=== PATIENT | female | born 1950 | race Two or more races ===

== ENCOUNTER 2021-03-14 14:53 | Inpatient (IN) | payer MEDICARE, BC ==
[~2021-03-14] VITALS: Ht 162.6 cm; Wt 95.3 kg
--- NOTE | 2021-03-14 15:05 | NUR ---
SALINE LOCK ESTABLISHED, BLOOD DRAWN AND SENT TO LAB
--- NOTE | 2021-03-14 15:05 | NUR ---
TO ER BED 16, BIB RA 39 FROM HOME GENERALIZED WEAKNESS X 1 WEEK, SOB 86 AT ROOM AIR, AAOX3, CHANGED INTO A GOWN, CONNECTED TO MONITOR, SEEN BY
--- NOTE | 2021-03-14 15:10 | NUR ---
URINE COLLECTED AND SENT TO LAB
[2021-03-14] MEDS ORDERED: IV NS 0.9% 1,000 ML BAG IV ONE (15:30)
[2021-03-14] MEDS ORDERED: ANESTHESIA TRAY IN PYXIS 1 EA TRAY MC ONE (15:31)
--- NOTE | 2021-03-14 15:41 | NUR ---
MOVE SHEET SUBMITTED.
[2021-03-14 15:59] LABS: BASOPHILS # (AUTO) 0.1 K/uL (0.0-0.2); BASOPHILS % (AUTO) 0.6 % (0.0-2.0); EOSINOPHILS % (AUTO) 0.1 % (0.0-6.0); HEMATOCRIT 36 % (33-45); HEMOGLOBIN 11.9 g/dL (11.5-14.8); LYMPHOCYTES % (AUTO) 10.5 % (20.0-44.0); MEAN CORPUSCULAR HGB CONC 33 g/dl (31.0-36.0); MEAN CORPUSCULAR VOLUME 89 fL (82-100); MONOCYTES # (AUTO) 0.5 K/uL (0.1-1.30); MONOCYTES % (AUTO) 5.1 % (2.0-12.0); NEUTROPHILS # (AUTO) 8.3 K/uL (1.8-8.9); NEUTROPHILS % (AUTO) 83.7 % (43.0-81.0); PLATELET COUNT (AUTO) 235 K/uL (150-450); RED BLOOD CELL COUNT(AUTO) 4.02 MIL/uL (4.0-5.2); WHITE BLOOD COUNT (AUTO) 9.9 K/uL (4.3-11.0)
--- NOTE | 2021-03-14 16:17 | NUR ---
BRUNO DAUGHTER [phone]
[2021-03-14] MEDS ORDERED: FUROSEMIDE 40 MG/4 ML VIAL ONE (16:20)
[2021-03-14] MEDS ORDERED: NTG 50 MG/D5W250 ML BOTTL 250 ML IV ONE ×2 (16:25→16:30)
[2021-03-14] MEDS ORDERED: ENALAPRILAT INJ (1.25 MG/ML) 1.25 MG/ML VIAL IV ONE (16:26)
[2021-03-14] MEDS ORDERED: ASPIRIN 325 MG TABLET ONE (16:26)
[2021-03-14] MEDS ORDERED: FUROSEMIDE 40 MG/4 ML VIAL IV ONE (16:30)
[2021-03-14] MEDS ORDERED: ENALAPRILAT DIHYD. (2.5MG/2ML) 1.25 MG/ML VIAL IV ONE (16:30)
[2021-03-14] MEDS ORDERED: ASPIRIN 325 MG TABLET PO ONE (16:30)
[2021-03-14 16:48] LABS: BILIRUBIN,URINE NEGATIVE (NEGATIVE); COLOR,URINE YELLOW (YELLOW); LEUKOCYTE ESTERASE ,URINE SMALL (NEGATIVE); NITRITE, URINE POSITIVE (NEGATIVE); PROTEIN,URINE 30 mg/dl (NEGATIVE); UGLUCOSE 250 MG/DL mg/dL (NEGATIVE); UROBILINOGEN,URINE 0.2 EU/dL (0.2)
[2021-03-14 16:57] LABS: CALCIUM, SERUM 9.2 mg/dL (8.5-10.1); POTASSIUM 3.9 mmol/L (3.5-5.1)
[2021-03-14 16:58] LABS: CREATININE 0.9 mg/dL (0.6-1.3)
[2021-03-14] MEDS ORDERED: SPIR25TA6 PO (16:58)
[2021-03-14] MEDS ORDERED: HYDR-4077 PO (16:58)
[2021-03-14] MEDS ORDERED: SERT100T12 PO (16:58)
[2021-03-14] MEDS ORDERED: OMEP40CA21 PO (16:58)
[2021-03-14] MEDS ORDERED: AMLO-213 PO (16:58)
[2021-03-14] MEDS ORDERED: ATOR40TA PO (16:58)
[2021-03-14] MEDS ORDERED: TOLT4CAP14 PO (16:58)
[2021-03-14] MEDS ORDERED: CARV25TA2 PO (16:58)
[2021-03-14] MEDS ORDERED: INSU100I26 SQ (16:58)
[2021-03-14] MEDS ORDERED: INSU100I4 SQ (16:58)
[2021-03-14] MEDS ORDERED: ASPI-1420 PO (16:58)
[2021-03-14] MEDS ORDERED: GABA-532 PO (16:58)
[2021-03-14 17:09] LABS: ALBUMIN 3.5 g/dL (3.4-5.0); BILIRUBIN,DIRECT 0.2 mg/dL (0.0-0.2); BILIRUBIN,TOTAL 0.7 mg/dL (0.2-1.0)
[2021-03-14 17:23] LABS: BACTERIA,URINE 3+ /HPF (None Seen); RBC,URINE 0-2 /HPF (0-2); SQUAMOUS EPITHELIAL CELL,UR 0-2 /HPF (None Seen); WBC,URINE 21-50 /HPF (0-3)
--- NOTE | 2021-03-14 17:40 | NUR ---
SEEN BY CARLY STEINER
[2021-03-14] MEDS ORDERED: MAG HYDROX/AL HYDROX/SIMETH 30 ML UDC PO PRN (18:00)
[2021-03-14] MEDS ORDERED: ACETAMINOPHEN ES 500 MG TABLET PO ONE (18:00)
[2021-03-14] MEDS ORDERED: CEFTRIAXONE 1GM BAG (ER ONLY) 50 ML IV ONE ×2 (18:00→18:29)
[2021-03-14] MEDS ORDERED: CEFTRIAXONE 1 G in IV D5W 50 ML IV SCH (18:00)
[2021-03-14] MEDS ORDERED: ONDANSETRON HCL/PF 4 MG/2 ML VIAL IVP PRN (18:00)
[2021-03-14] MEDS: ENOXAPARIN SODIUM 40 MG/0.4 ML DISP.SYRIN SQ SCH (18:00)
[2021-03-14] MEDS ORDERED: DEXTROSE 50%-WATER 50 ML DISP.SYRIN IV PRN (18:00)
[2021-03-14] MEDS ORDERED: ZOLPIDEM TARTRATE 5 MG TABLET PO PRN (18:00)
[2021-03-14] MEDS ORDERED: Z GUARD REMEDY 4 OZ OINT TP PRN (18:00)
[2021-03-14] MEDS ORDERED: ENOXAPARIN SODIUM 40 MG/0.4 ML DISP.SYRIN SQ ONE (18:29)
[2021-03-14] MEDS ORDERED: ACETAMINOPHEN ES 500 MG TABLET ONE (18:29)
[2021-03-14] MEDS: AZITHROMYCIN 500 MG in IV D5W 250 ML IV SCH (18:31)
[2021-03-14 18:50] LABS: C-REACTIVE PROTEIN 6.7 mg/dL (0.0-0.9)
[2021-03-14] MEDS ORDERED: CARVEDILOL 12.5 MG TABLET ONE (18:58)
[2021-03-14] MEDS ORDERED: hydrALAZINE HCL 50 MG TABLET ONE (18:58)
[2021-03-14] MEDS ORDERED: GABAPENTIN 100 MG CAPSULE ONE (18:59)
[2021-03-14] MEDS: hydrALAZINE HCL 50 MG TABLET PO SCH (19:00)
[2021-03-14] MEDS: CARVEDILOL 12.5 MG TABLET PO SCH (19:00)
[2021-03-14] MEDS: GABAPENTIN 100 MG CAPSULE PO SCH (19:00)
--- NOTE | 2021-03-14 19:15 | NUR ---
PT TURNED AND REPOSITIONED. DARK DISCOLORATION NOTED BUTTOCKS TO BILAT UPPER THIGH.
--- NOTE | 2021-03-14 19:46 | NUR ---
COVID PCR DONE AND SENT TO LAB
--- NOTE | 2021-03-14 21:00 | NUR ---
NITRO DRIP DISCONTINUED
--- NOTE | 2021-03-14 21:15 | NUR ---
DR PEREZ NOTIFIED OF NITRO DRIP BEING DISCONTINUED AND CURRENT VITAL SIGNS. PER DR PEREZ CONTINUE ICU STATUS.
[2021-03-14] MEDS ORDERED: INSULIN REGULAR, HUMAN 100 UNIT/ML 10 ML VIAL ONE (22:25)
[2021-03-14] MEDS: BLOOD SUGAR DIAGNOSTIC 1 EACH STRIP IN SCH (22:29)
[2021-03-14] MEDS: INSULIN GLARGINE, 100 UNIT/ML CARTRIDGE SQ SCH (22:29)
[2021-03-14] MEDS: INSULIN REGULAR, HUMAN 100 UNIT/ML 3 ML VIAL SQ PRN (22:29)
[2021-03-14] MEDS ORDERED: ATORVASTATIN 40 MG TABLET ONE (22:35)
[2021-03-14] MEDS: ATORVASTATIN 40 MG TABLET PO SCH (22:36)
--- NOTE | 2021-03-14 23:02 | NUR ---
icu 253
[2021-03-15] VITALS (16 sets, daily range): BP systolic 95–157; BP diastolic 45–94
[2021-03-15] MEDS ORDERED: IV NS 0.9% 250 ML IV PRN (01:30)
--- NOTE | 2021-03-15 02:24 | NUR ---
pt transfered to icu via acls protocol
[2021-03-15 04:36] LABS: BASOPHILS % (AUTO) 0.3 % (0.0-2.0); HEMATOCRIT 33 % (33-45); HEMOGLOBIN 11.1 g/dL (11.5-14.8); LYMPHOCYTES # (AUTO) 0.9 K/uL (0.8-4.8); LYMPHOCYTES % (AUTO) 9.6 % (20.0-44.0); MEAN CORPUSCULAR HGB CONC 34 g/dl (31.0-36.0); MEAN CORPUSCULAR VOLUME 87 fL (82-100); MONOCYTES # (AUTO) 0.6 K/uL (0.1-1.30); MONOCYTES % (AUTO) 7.2 % (2.0-12.0); NEUTROPHILS # (AUTO) 7.4 K/uL (1.8-8.9); NEUTROPHILS % (AUTO) 82.9 % (43.0-81.0); PLATELET COUNT (AUTO) 201 K/uL (150-450); RED BLOOD CELL COUNT(AUTO) 3.77 MIL/uL (4.0-5.2); WHITE BLOOD COUNT (AUTO) 8.9 K/uL (4.3-11.0)
[2021-03-15 04:41] LABS: CALCIUM, SERUM 8.8 mg/dL (8.5-10.1); CREATININE 1.2 mg/dL (0.6-1.3); PHOSPHORUS 3.2 mg/dL (2.5-4.9); POTASSIUM 3.4 mmol/L (3.5-5.1)
[2021-03-15] MEDS ORDERED: CEFEPIME 1 GM VIAL ONE (05:37)
[2021-03-15] MEDS: CEFEPIME 2 GM in IV D5W 100 ML IV SCH ×2 (06:00→18:28)
[2021-03-15] MEDS: ACETAMINOPHEN 325 MG TABLET PO PRN (06:26)
[2021-03-15 06:43] LABS: ABG BASE EXCESS 2.5 mmol/L; ABG PCO2 35.2 mmHg (35.0-45.0); ABG PH 7.483 (7.350-7.450); ABG PO2 131.7 mmHg (75.0-100.0); COHb 0.2 % (0.5-1.5); MetHb 0.3 % (0.0-1.5); O2Hb 97.8 % (94.0-97.0); SITE, ABG Right Radial; VENT MODE, BG Simple Mask
--- NOTE | 2021-03-15 06:46 | NUR ---
HIGH SCHOOL MUSIC INSTRUCTOR DAUGHTER BRUNO GIVEN UPDATE ON PTS CONDITION; PER DAUGHTER PT WITH DISCOLORATION ON BUTTOCKS/ UPPER THIGHS PRIOR TO ADMISSION O2 CHANGED TO TO 6L VIA NC TYLENOL GIVEN FOR LLE PAIN
[2021-03-15] MEDS ORDERED: HEPARIN SODIUM, PORCINE 1,000 UNIT/ML VIAL ONE ×2 (06:57→08:19)
[2021-03-15] MEDS ORDERED: LIDOCAINE 1% INJ 50 ML MDV IJ ONE (06:57)
[2021-03-15] MEDS ORDERED: IOHEXOL 240MG/ML 50 ML IV ONE (06:57)
[2021-03-15] MEDS: BLOOD SUGAR DIAGNOSTIC 1 EACH STRIP IN SCH ×4 (07:30→22:04)
[2021-03-15] MEDS: PANTOPRAZOLE 40 MG TABLET.DR PO SCH (07:49)
[2021-03-15] MEDS: POTASSIUM CHLORIDE 20 MEQ TAB.PRT.SR PO SCH ×3 (07:49→09:00)
[2021-03-15] MEDS: FUROSEMIDE 40 MG/4 ML VIAL IV SCH ×3 (07:50→15:10)
--- NOTE | 2021-03-15 08:55 | NUR ---
WOUND CARE CONSULT: REVIEWED CHART, NURSING DOCUMENTATION AND PHOTOS WHICH INDICATE PURPLISH DISCOLORATION TO BUTTOCKS AND POSTERIOR THIGHS, PRESENT ON ADMISSION. CURRENT ALAYNA SCORE IS 13. PT IS ON ANATOLY ISOFLEX LOW AIRLOSS BED. RECOMMENDATIONS MADE FOR SKIN PROTECTION. DISCUSSED WITH NURSING STAFF. MD IN AGREEMENT WITH PLAN OF CARE.
[2021-03-15] MEDS ORDERED: Medication Not On Formulary EA (Sertraline Hcl 100 MG) PO SCH (09:00)
[2021-03-15] MEDS: GABAPENTIN 100 MG CAPSULE PO SCH ×3 (11:19→17:50)
[2021-03-15] MEDS: SERTRALINE HCL 50 MG TABLET PO SCH (11:19)
[2021-03-15] MEDS: hydrALAZINE HCL 50 MG TABLET PO SCH ×3 (11:20→17:51)
[2021-03-15] MEDS: ASPIRIN EC 81 MG TABLET.DR PO SCH (11:20)
[2021-03-15] MEDS: AMLODIPINE BESYLATE 10 MG TABLET PO SCH (11:21)
[2021-03-15] MEDS: SPIRONOLACTONE 25 MG TABLET PO SCH ×2 (11:21→17:50)
[2021-03-15] MEDS: CARVEDILOL 12.5 MG TABLET PO SCH ×2 (11:22→17:52)
[2021-03-15] MEDS ORDERED: IOHEXOL-300 100 ML VIAL IV ONE (12:46)
[2021-03-15] MEDS ORDERED: CT SWABBABLE VALVE TRANS SET 1 EA INFUS.SET MC ONE (12:47)
[2021-03-15] MEDS ORDERED: IV NS 0.9% 250 ML IV ONE (12:47)
[2021-03-15] MEDS: INSULIN REGULAR, HUMAN 100 UNIT/ML 3 ML VIAL SQ PRN ×2 (12:56→22:17)
--- NOTE | 2021-03-15 13:24 | NUR ---
RN NOTES RECEIVED PT ASLEEP IN BED, WHEELS LOCKED, BED LOW TO FLOOR FOR SAFETY, ALL IV'S INTACT PATENT FLUSHING WELL, EASY TO AROUSE , A&O X3, ABLE TO MAKE NEEDS KNOWN, URINE IS YELLOW CLEAR NO FOUL ODOR NOTED, F/C INTACT DRAINING PROPERLY WITH GRAVITY, BS TAKEN = 424 AM, 1200 NOON TAKEN 464, GIVEN INSULIN PER SLIDING SCALE, RE-TOOK BS IT IS AT 434 AT THIS TIME, MD NOTIFIED FOR ANY FURTHER ORDERS WILL RE-ASSESS BS IN 15MINUTES AND PROVIDE UPDATE TO MD AND CHART INFORMATION ON BS READING. PT IS TALKING ABLE TO MAKE NEEDS KNOWN, BELCHING OFTEN, REPOSITIONED FOR COMFORT AND GIVEN ICE WATER DRANK 16 OZ, GIVEN WARM BLANKET FOR COMFORT AND TV VOLUME TURNED TO LOW.
[2021-03-15] MEDS: AZITHROMYCIN 500 MG in IV D5W 250 ML IV SCH (18:27)
[2021-03-15] MEDS: ENOXAPARIN SODIUM 40 MG/0.4 ML DISP.SYRIN SQ SCH (18:29)
--- NOTE | 2021-03-15 20:45 | NUR ---
RN NOTES RECEIVED PATIENT FROM ICU NURSE VIA BED WITH OXYGEN INHALATION AT 5 LPM VIA NASAL CANULA TOLERATING WELL SATING 98%. NO DISTRESS NO SOB NOTED AT THIS TIME.WITH JANG CATHETER CONNECTED TO URINE BAG DRAINING YELLOWISH URINE OUTPUT. WITH IV ACCESS AT R AC # 20, L HAND #20 PATENT FLUSHES WELL. VITAL SIGNS TAKEN AND RECORDED AFEBRILE. CONNECTED TO TELE BOX. ALL SAFETY MEASURES IN PLACE AT ALL TIMES. CALL LIGHT WITHIN REACH. HOB ELEVATED. BED ON LOWEST POSITION AND LOCKED. WILL CLOSELY MONITOR THE PATIENT
--- NOTE | 2021-03-15 20:57 | NUR ---
PROMOTIONAL MODEL NOTIFIED DAUGHTER BRUNO OF PT TRANSFER
[2021-03-15] MEDS: ATORVASTATIN 40 MG TABLET PO SCH (22:09)
--- NOTE | 2021-03-15 22:10 | NUR ---
RN NOTED BS 418 MG/DL. DUE LANTUS 12 UNITS AND HUMULIN R [address] ANA WHITLOCK WITH NO ORDER JUST MONITOR THE PATIENT.
[2021-03-15] MEDS: INSULIN GLARGINE, 100 UNIT/ML CARTRIDGE SQ SCH (22:11)
[2021-03-16] VITALS: BP 94/42
[2021-03-16 04:00] VITALS: BP 97/48
[2021-03-16] MEDS: CEFEPIME 2 GM in IV D5W 100 ML IV SCH ×2 (05:23→17:30)
--- NOTE | 2021-03-16 06:21 | NUR ---
RN NOTES PATIENT REMAINS STABLE NO SIGNIFICANT CHANGES IN HEALTH CONDITION THIS SHIFT. ALL DUE MEDS GIVEN ORDERED. STILL ON 5LPM VIA NC TOLERATING WELL SATING 98%. WITH JANG PATENT DRAINING YELLOWISH URINE. ALL SAFETY MEASURES IN PLACE AT ALL TIMES. HOB ELEVATED. CALL LIGHT WITHIN REACH. BED ON LOWEST POSITION AND LOCKED. WILL ENDORSED TO MORNING NURSE FOR TATYANA
[2021-03-16 07:14] LABS: BASOPHILS % (AUTO) 0.4 % (0.0-2.0); EOSINOPHILS % (AUTO) 0.7 % (0.0-6.0); HEMATOCRIT 31 % (33-45); HEMOGLOBIN 10.4 g/dL (11.5-14.8); LYMPHOCYTES # (AUTO) 1.4 K/uL (0.8-4.8); LYMPHOCYTES % (AUTO) 17.7 % (20.0-44.0); MEAN CORPUSCULAR HGB CONC 33 g/dl (31.0-36.0); MEAN CORPUSCULAR VOLUME 88 fL (82-100); MONOCYTES # (AUTO) 0.9 K/uL (0.1-1.30); MONOCYTES % (AUTO) 11.3 % (2.0-12.0); NEUTROPHILS # (AUTO) 5.5 K/uL (1.8-8.9); NEUTROPHILS % (AUTO) 69.9 % (43.0-81.0); PLATELET COUNT (AUTO) 180 K/uL (150-450); RED BLOOD CELL COUNT(AUTO) 3.58 MIL/uL (4.0-5.2); WHITE BLOOD COUNT (AUTO) 7.9 K/uL (4.3-11.0)
--- NOTE | 2021-03-16 07:30 | NUR ---
TRACTOR OPERATOR OPENING NOTES RECEIVED PATIENT ON BED AWAKE AND A/O X3. ON O2 AT 5LPM VIA NASAL CANNULA TOLERATING WELL. NO SOB NOTED. NOT IN DISTRESS. WITH NO COMPLAINTS OF PAIN OR DISCOMFORT AT THIS TIME. WITH IV ACCESS AT RIGHT AC G20 AND AT LEFT HAND G20, SALINE LOCKED, PATENT AND INTACT. ON TELE MONITOR CURRENTLY READING SINUS RHYTHM AT 81BPM. SAFETY MEASURES IN PLACED. CALL LIGHT WITHIN REACH. BED ON LOWEST LOCKED POSITION, SIDE RAILS UP X2. WILL CONTINUE TO MONITOR.
[2021-03-16 08:00] VITALS: BP 100/43
[2021-03-16 08:57] LABS: ALBUMIN 2.7 g/dL (3.4-5.0); BILIRUBIN,TOTAL 0.5 mg/dL (0.2-1.0); CALCIUM, SERUM 8.7 mg/dL (8.5-10.1); CREATININE 1.4 mg/dL (0.6-1.3); MAGNESIUM 2.1 mg/dL (1.8-2.4); PHOSPHORUS 3.5 mg/dL (2.5-4.9); POTASSIUM 3.7 mmol/L (3.5-5.1); TOTAL PROTEIN, SERUM 6.7 g/dL (6.4-8.2)
[2021-03-16] MEDS: BLOOD SUGAR DIAGNOSTIC 1 EACH STRIP IN SCH ×7 (08:58→22:11)
[2021-03-16] MEDS: ASPIRIN EC 81 MG TABLET.DR PO SCH (08:59)
[2021-03-16] MEDS: AMLODIPINE BESYLATE 10 MG TABLET PO SCH (08:59)
[2021-03-16] MEDS: SERTRALINE HCL 50 MG TABLET PO SCH (08:59)
[2021-03-16] MEDS: PANTOPRAZOLE 40 MG TABLET.DR PO SCH (08:59)
[2021-03-16] MEDS: GABAPENTIN 100 MG CAPSULE PO SCH ×3 (08:59→17:25)
[2021-03-16] MEDS: CARVEDILOL 12.5 MG TABLET PO SCH ×2 (09:00→17:00)
[2021-03-16] MEDS: hydrALAZINE HCL 50 MG TABLET PO SCH (09:00)
[2021-03-16] MEDS: SPIRONOLACTONE 25 MG TABLET PO SCH ×2 (09:00→17:00)
[2021-03-16] MEDS: INSULIN REGULAR, HUMAN 100 UNIT/ML 3 ML VIAL SQ PRN ×4 (09:09→22:14)
[2021-03-16] MEDS ORDERED: DEXTROSE 50%-WATER 50 ML DISP.SYRIN IV PRN (10:00)
[2021-03-16] MEDS: POTASSIUM CHLORIDE 20 MEQ TAB.PRT.SR PO SCH ×3 (10:40→14:08)
[2021-03-16] MEDS: FUROSEMIDE 40 MG/4 ML VIAL IV SCH ×2 (11:55→21:26)
[2021-03-16 12:00] VITALS: BP 123/55
[2021-03-16 16:00] VITALS: BP 99/52
[2021-03-16] MEDS: ENOXAPARIN SODIUM 40 MG/0.4 ML DISP.SYRIN SQ SCH (17:31)
--- NOTE | 2021-03-16 18:43 | NUR ---
DIE KEEPER CLOSING NOTES PATIENT ON BED AWAKE AND A/O X3. ON O2 AT 5LPM VIA NASAL CANNULA TOLERATING WELL. NO SOB NOTED. NOT IN DISTRESS. WITH NO COMPLAINTS OF PAIN OR DISCOMFORT AT THIS TIME. WITH IV ACCESS AT RIGHT AC G20 AND AT LEFT HAND G20, SALINE LOCKED, PATENT AND INTACT. ON TELE MONITOR CURRENTLY READING SINUS RHYTHM AT 76BPM. DUE MEDS GIVEN. SAFETY MEASURES IN PLACED. CALL LIGHT WITHIN REACH. BED ON LOWEST LOCKED POSITION, SIDE RAILS UP X2. WILL ENDORSE TO NEXT SHIFT FOR TATYANA.
--- NOTE | 2021-03-16 19:30 | NUR ---
RN OPENING NOTES RECEIVED CARE OF PATIENT WHILE PATIENT IN BED, A/O X3, KHMER SPEAKING, ABLE TO MAKE NEEDS KNOWN THROUGH FACIAL AND HAND GESTURES. PATIENT ON O2 AT 5 L/MIN VIA NC, NO SOB NOTED, O2 SAT 96%. PATIENT NOTED WITH IV ACCESS ON RIGHT AC G20 AND ON LEFT HAND G20, SALINE LOCKED, PATENT AND INTACT. ON TELE MONITOR CURRENTLY READING SINUS RHYTHM AT 81 BPM. NO SIGNIFICANT FINDINGS UPON INITIAL NURSING ASSESSMENTS. APPROPRIATE ISOLATION PRECAUTIONS IN PLACE. NECESSARY SAFETY MEASURES IMPLEMENTED. CALL LIGHT WITHIN REACH. BED AT LOWEST LOCKED POSITION, SIDE RAILS UP X2. WILL CONTINUE TO MONITOR PATIENT.
[2021-03-16 20:00] VITALS: BP 111/42
[2021-03-16] MEDS: DOCUSATE SODIUM 100 MG CAPSULE PO SCH (21:24)
[2021-03-16] MEDS: ATORVASTATIN 40 MG TABLET PO SCH (21:24)
--- NOTE | 2021-03-16 21:27 | NUR ---
RN NOTES AM NURSE ENDORSED THAT SHE HELD SCHEDULED LASIX ADMINISTRATION DUE TO PATIENT BEING HYPOTENSIVE. WILL RESUME WITH 2ND DOSE OF LASIX. PATIENT'S CURRENT BP 114/62, NO DISTRESS NOTED. WILL CONTINUE TO MONITOR PATIENT POST LASIX ADMINISTRATION.
[2021-03-16] MEDS: INSULIN GLARGINE, 100 UNIT/ML CARTRIDGE SQ SCH (22:12)
[2021-03-17] VITALS (7 sets, daily range): BP systolic 93–136; BP diastolic 45–62
[2021-03-17] MEDS: BLOOD SUGAR DIAGNOSTIC 1 EACH STRIP IN SCH ×6 (01:58→21:16)
[2021-03-17] MEDS: INSULIN REGULAR, HUMAN 100 UNIT/ML 3 ML VIAL SQ PRN ×6 (02:05→21:51)
[2021-03-17] MEDS ORDERED: FUROSEMIDE 40 MG/4 ML VIAL ONE (02:43)
[2021-03-17] MEDS: FUROSEMIDE 40 MG/4 ML VIAL IV SCH ×4 (03:24→16:43)
[2021-03-17] MEDS: CEFEPIME 2 GM in IV D5W 100 ML IV SCH (06:21)
--- NOTE | 2021-03-17 07:15 | NUR ---
RN OPENING NOTES RECEIVED PATIENT IN BED, AWAKE,ALERT/ORIENTED X3, MALIAN SPEAKING. BREATHING EVEN AND UNLABORED. PATIENT ON O2 AT 5 LPM VIA NC, NO SOB NOTED OR ANY ACUTE DISTRESS NOTED. WITH IV ACCESS ON LEFT HAND G#20, FLUSHED WELL, PATENT AND INTACT. ALL APPLICABLE ISOLATION PRECAUTIONS IN PLACE. ALL SAFETY MEASURES IN PLACE: HOB ELEVATED, BED LOCKED AND IN LOWEST POSITION WITH SIDERAILS UP. CALL LIGHT WITHIN REACH. WILL CONTINUE TO MONITOR PATIENT ACCORDINGL.Y.
--- NOTE | 2021-03-17 07:24 | NUR ---
RN CLOSING NOTES ENDORSE CARE OF PATIENT TO AM NURSE. PATIENT ASLEEP IN BED WAKES UP TO NAME, A/O X3, ABLE TO MAKE NEEDS KNOWN. PATIENT ON O2 AT 5 L/MIN VIA NC, NO SOB NOTED, O2 SAT 95%. PATIENT WITH IV ACCES ON LEFT HAND G20, SALINE LOCKED, PATENT AND INTACT. ON TELE MONITOR CURRENTLY READING SINUS RHYTHM AT 72 BPM. NO SIGNIFICANT FINDINGS UPON ALL NURSING ASSESSMENTS. PATIENT COMPLAINS OF CONSTIPATION, NO BOWEL MOVEMENT FOR DAYS, ADMINSTERED DOCUSATE DURING THE SHIFT. APPROPRIATE ISOLATION PRECAUTIONS IN PLACE. NECESSARY SAFETY MEASURES IMPLEMENTED. CALL LIGHT WITHIN REACH. BED AT LOWEST LOCKED POSITION, SIDE RAILS UP X2. WILL ENDORSE TO AM NURSE FOR TATYANA.
[2021-03-17 07:55] LABS: BASOPHILS % (AUTO) 0.6 % (0.0-2.0); EOSINOPHILS % (AUTO) 2.2 % (0.0-6.0); HEMATOCRIT 29 % (33-45); LYMPHOCYTES # (AUTO) 1.9 K/uL (0.8-4.8); LYMPHOCYTES % (AUTO) 26.4 % (20.0-44.0); MEAN CORPUSCULAR HGB CONC 34 g/dl (31.0-36.0); MEAN CORPUSCULAR VOLUME 86 fL (82-100); MONOCYTES % (AUTO) 14.2 % (2.0-12.0); NEUTROPHILS # (AUTO) 4.1 K/uL (1.8-8.9); NEUTROPHILS % (AUTO) 56.6 % (43.0-81.0); PLATELET COUNT (AUTO) 196 K/uL (150-450); RED BLOOD CELL COUNT(AUTO) 3.42 MIL/uL (4.0-5.2); WHITE BLOOD COUNT (AUTO) 7.2 K/uL (4.3-11.0)
[2021-03-17] MEDS: PANTOPRAZOLE 40 MG TABLET.DR PO SCH (08:13)
[2021-03-17] MEDS: ASPIRIN EC 81 MG TABLET.DR PO SCH (08:14)
[2021-03-17] MEDS: DOCUSATE SODIUM 100 MG CAPSULE PO SCH (08:14)
[2021-03-17] MEDS: GABAPENTIN 100 MG CAPSULE PO SCH ×3 (08:14→16:05)
[2021-03-17] MEDS: SERTRALINE HCL 50 MG TABLET PO SCH (08:15)
[2021-03-17 08:21] LABS: ALBUMIN 2.6 g/dL (3.4-5.0); BILIRUBIN,TOTAL 0.4 mg/dL (0.2-1.0); CALCIUM, SERUM 8.7 mg/dL (8.5-10.1); CREATININE 1.2 mg/dL (0.6-1.3); MAGNESIUM 2.1 mg/dL (1.8-2.4); PHOSPHORUS 2.6 mg/dL (2.5-4.9); TOTAL PROTEIN, SERUM 6.7 g/dL (6.4-8.2)
[2021-03-17] MEDS: SPIRONOLACTONE 25 MG TABLET PO SCH ×2 (09:00→16:05)
[2021-03-17] MEDS: CARVEDILOL 12.5 MG TABLET PO SCH ×2 (09:00→16:06)
--- NOTE | 2021-03-17 10:10 | NUR ---
RN NOTES BP- 124/69, HR-64. WILL GIVE LASIX.
[2021-03-17] MEDS ORDERED: POLYETHYLENE GLYCOL 3350 17 GM POWD.PACK PO ONE (11:00)
[2021-03-17] MEDS: SOD FERRIC GLUC 125 MG in IV NS 0.9% 100 ML IV SCH (13:48)
[2021-03-17] MEDS: CEFTRIAXONE 1 G in IV D5W 50 ML IV SCH (14:59)
[2021-03-17] MEDS: ENOXAPARIN SODIUM 40 MG/0.4 ML DISP.SYRIN SQ SCH (17:11)
--- NOTE | 2021-03-17 19:29 | NUR ---
RN CLOSING NOTES PATIENT REMAINS IN STABLE CONDITION THROUGHOUT. BREATHING EVEN AND UNLABORED. NO SOB OR ANY ACUTE DISTRESS NOTED. ON O2 5LPM VIA NC, TOLERATING WELL. IV ACCESS ON LEFT HAND, NO SIGNS OF INFILTRATIONS. ALL DUE MEDS GIVEN ORDERED. KEPT PATIENT CLEAN, DRY AND COMFORTABLE. ALL NEEDS ATTENDED. ALL APPLICABLE ISOLATION PRECAUTIONS IN PLACE. ALL SAFETY MEASURES MAINTAINED. BED LOCKED AND IN LOWEST POSITION WITH SIDERAILS UP. CALL LIGHT WITHIN REACH. ENDORSED TO ONCOMING NURSE FOR TATYANA.
--- NOTE | 2021-03-17 19:30 | NUR ---
TAFFY CANDY MAKER OPENING NOTE RECEIVED PATIENT IN BED. HOB ELEVATED. A/OX4. NO S/S OF APPARENT DISTRESS ON 5LPM OF O2 VIA NC. DENIES PAIN. TELE MONITOR READING SR WITH PVC 81 BPM. NO FLUIDS RUNNING AT THIS TIME. PATIENT NEEDS ATTENDED AT THIS TIME. SAFETY IN PLACE. WILL CONTINUE WITH PLAN OF CARE FOR PATIENT.
[2021-03-17] MEDS: ATORVASTATIN 40 MG TABLET PO SCH (21:16)
[2021-03-17] MEDS: INSULIN GLARGINE, 100 UNIT/ML CARTRIDGE SQ SCH (21:48)
[2021-03-18] VITALS: BP 126/47
[2021-03-18] MEDS: BLOOD SUGAR DIAGNOSTIC 1 EACH STRIP IN SCH ×6 (01:00→21:32)
[2021-03-18] MEDS: INSULIN REGULAR, HUMAN 100 UNIT/ML 3 ML VIAL SQ PRN ×5 (02:08→21:38)
[2021-03-18 04:00] VITALS: BP 120/49
--- NOTE | 2021-03-18 05:37 | NUR ---
telecommunications analyst note blood sugar 112. no coverage needed.
--- NOTE | 2021-03-18 06:34 | NUR ---
FIELD ADMINISTRATOR CLOSING NOTE PATIENT IN BED WITH EYES CLOSED, EASY TO AROUSE. NO S/S OF APPARENT DISTRESS ON ROOM AIR. TELE MONITOR READING SR 60 BPM WITH OCCASIONAL PVC'S /AV BLOCK. NO C/O PAIN AT THIS TIME. WOUND CONSULT ORDERED FOR SACRUM-- PICTURE TAKEN, OFFLOADED WITH PILLOWS. NO FLUIDS RUNNING AT THIS TIME. SAFETY KEPT IN PLACE THE WHOLE SHIFT. JANG CATH DRAINING LIDYA YELLOW URINE- WITH UO OF 1300ML. ALL NEEDS ATTENDED. ALL SCHEDULED MEDICATIONS ADMINISTERED. ISOLATION STRICTLY FOLLOWED. WILL ENDORSE TO MORNING SHIFT RN FOR CONTINUITY OF CARE.
[2021-03-18 07:28] LABS: ALBUMIN 2.6 g/dL (3.4-5.0); BILIRUBIN,TOTAL 0.3 mg/dL (0.2-1.0); CALCIUM, SERUM 8.7 mg/dL (8.5-10.1); MAGNESIUM 2.1 mg/dL (1.8-2.4); PHOSPHORUS 3.1 mg/dL (2.5-4.9); POTASSIUM 3.8 mmol/L (3.5-5.1); TOTAL PROTEIN, SERUM 7.1 g/dL (6.4-8.2)
[2021-03-18 08:00] VITALS: BP 143/53
[2021-03-18 08:10] LABS: BASOPHILS % (AUTO) 0.6 % (0.0-2.0); EOSINOPHILS % (AUTO) 3.2 % (0.0-6.0); HEMATOCRIT 31 % (33-45); HEMOGLOBIN 10.7 g/dL (11.5-14.8); LYMPHOCYTES # (AUTO) 1.9 K/uL (0.8-4.8); LYMPHOCYTES % (AUTO) 31.6 % (20.0-44.0); MEAN CORPUSCULAR HGB CONC 34 g/dl (31.0-36.0); MEAN CORPUSCULAR VOLUME 86 fL (82-100); MONOCYTES # (AUTO) 0.9 K/uL (0.1-1.30); MONOCYTES % (AUTO) 15.2 % (2.0-12.0); NEUTROPHILS # (AUTO) 2.9 K/uL (1.8-8.9); NEUTROPHILS % (AUTO) 49.4 % (43.0-81.0); PLATELET COUNT (AUTO) 248 K/uL (150-450); RED BLOOD CELL COUNT(AUTO) 3.66 MIL/uL (4.0-5.2); WHITE BLOOD COUNT (AUTO) 5.9 K/uL (4.3-11.0)
[2021-03-18] MEDS: CARVEDILOL 12.5 MG TABLET PO SCH ×2 (09:00→17:00)
[2021-03-18] MEDS: SPIRONOLACTONE 25 MG TABLET PO SCH ×2 (09:19→17:53)
[2021-03-18] MEDS: PANTOPRAZOLE 40 MG TABLET.DR PO SCH (09:20)
[2021-03-18] MEDS: ASPIRIN EC 81 MG TABLET.DR PO SCH (09:20)
[2021-03-18] MEDS: GABAPENTIN 100 MG CAPSULE PO SCH ×3 (09:20→17:53)
[2021-03-18] MEDS: POLYETHYLENE GLYCOL 3350 17 GM POWD.PACK PO SCH (09:20)
[2021-03-18] MEDS: SERTRALINE HCL 50 MG TABLET PO SCH (09:20)
[2021-03-18] MEDS: DOCUSATE SODIUM 100 MG CAPSULE PO SCH (09:20)
[2021-03-18] MEDS ORDERED: BISACODYL SUPP (10 MG) 10 MG/SUPP.RECT SUPP.RECT RC ONE (09:30)
--- NOTE | 2021-03-18 11:38 | NUR ---
WOUND CARE CONSULT: SECOND CONSULT FOR PURPLISH DISCOLORATION TO POSTERIOR BUTTOCKS AND THIGHS, PRESENT ON ADMISSION. RECOMMENDATIONS MADE FOR SKIN PROTECTION. DISCUSSED WITH NURSING STAFF. MD IN AGREEMENT WITH PLAN OF CARE.
[2021-03-18 12:00] VITALS: BP 120/46
[2021-03-18] MEDS: FUROSEMIDE 40 MG/4 ML VIAL IV SCH ×3 (12:01→19:57)
[2021-03-18] MEDS: POTASSIUM CHLORIDE 20 MEQ TAB.PRT.SR PO SCH ×3 (12:01→17:55)
[2021-03-18] MEDS ORDERED: IOHEXOL-350 100 ML VIAL IV ONE (13:49)
[2021-03-18] MEDS ORDERED: CT SWABBABLE VALVE TRANS SET 1 EA INFUS.SET MC ONE (13:49)
[2021-03-18] MEDS ORDERED: METOPROLOL TARTRATE INJ 5 MG/5 ML AMPUL ONE ×2 (13:49→14:24)
[2021-03-18] MEDS ORDERED: IV NS 0.9% 250 ML IV ONE (13:50)
[2021-03-18] MEDS ORDERED: METOPROLOL TARTRATE INJ 5 MG/5 ML AMPUL IVP ONE (14:30)
[2021-03-18] MEDS ORDERED: NITROGLYCERIN 0.4 MG/TAB BOTTLE SL ONE (14:30)
[2021-03-18] MEDS: CEFTRIAXONE 1 G in IV D5W 50 ML IV SCH (15:46)
[2021-03-18 16:00] VITALS: BP 118/61
[2021-03-18] MEDS: SOD FERRIC GLUC 125 MG in IV NS 0.9% 100 ML IV SCH (16:58)
[2021-03-18] MEDS: ENOXAPARIN SODIUM 40 MG/0.4 ML DISP.SYRIN SQ SCH (18:07)
--- NOTE | 2021-03-18 19:30 | NUR ---
RN OPENING NOTE PATIENT AWAKE IN BED, A/O X 3. PATIENT CURRENTLY ON 3LPM VIA NC, TOLERATING WELL NO SOB, 100% O2 SAT. TELE MONITOR READS SR 62 BPM. PATIENT DOES NOT COMPLAIN OF ANY PAIN. EXPRESSES ABDOMINAL DISCOMFORT D/T CONSTIPATION. PATIENT HAS A JANG CATHETER IN PLACE DRAINING VIA GRAVITY, YELLOW COLORED URINE. PATIENT HAS A R AC 18 G PATENT AND INTACT, SALINE LOCKED ONLY. SAFETY MEASURES IN PLACE: BED LOCKED AND IN LOWEST POSITION, CALL LIGHT WITHIN REACH, SIDE RAILS UP. HOB ELEVATED. WILL CONTINUE TO MONITOR CLOSELY.
[2021-03-18 20:00] VITALS: BP 126/44
[2021-03-18] MEDS: ATORVASTATIN 40 MG TABLET PO SCH (21:27)
[2021-03-18] MEDS: INSULIN GLARGINE, 100 UNIT/ML CARTRIDGE SQ SCH (21:36)
--- NOTE | 2021-03-18 22:00 | NUR ---
RN NOTE BS 331 MG/DL. 16 UNITS OF REGULAR INSULIN GIVEN FOR COVERAGE AND LANTUS 16 UNITS GIVEN. PATIENT GIVEN JUICE AND SNACKS. WILL MONITOR FOR HYPO/HYPERGLYCEMIA.
[2021-03-19] VITALS: BP 132/49
[2021-03-19] MEDS: BLOOD SUGAR DIAGNOSTIC 1 EACH STRIP IN SCH ×6 (00:25→21:37)
[2021-03-19] MEDS: INSULIN REGULAR, HUMAN 100 UNIT/ML 3 ML VIAL SQ PRN ×4 (00:30→21:40)
--- NOTE | 2021-03-19 00:36 | NUR ---
RN NOTE BS 284, 12 UNITS GIVEN FOR COVERAGE
[2021-03-19 04:00] VITALS: BP 142/60
--- NOTE | 2021-03-19 05:00 | NUR ---
RN NOTE BS 95 MG/DL NO COVERAGE ADMINISTERED. PATIENT GIVEN JUICE TO PREVENT FURTHER HYPOGLYCEMIA
[2021-03-19] MEDS: ACETAMINOPHEN 325 MG TABLET PO PRN (06:10)
[2021-03-19 06:45] LABS: BASOPHILS # (AUTO) 0.1 K/uL (0.0-0.2); BASOPHILS % (AUTO) 0.9 % (0.0-2.0); EOSINOPHILS % (AUTO) 3.6 % (0.0-6.0); HEMATOCRIT 35 % (33-45); HEMOGLOBIN 11.6 g/dL (11.5-14.8); LYMPHOCYTES # (AUTO) 2.6 K/uL (0.8-4.8); LYMPHOCYTES % (AUTO) 28.4 % (20.0-44.0); MEAN CORPUSCULAR HGB CONC 34 g/dl (31.0-36.0); MEAN CORPUSCULAR VOLUME 87 fL (82-100); MONOCYTES # (AUTO) 1.4 K/uL (0.1-1.30); MONOCYTES % (AUTO) 15.4 % (2.0-12.0); NEUTROPHILS # (AUTO) 4.8 K/uL (1.8-8.9); NEUTROPHILS % (AUTO) 51.7 % (43.0-81.0); PLATELET COUNT (AUTO) 317 K/uL (150-450); RED BLOOD CELL COUNT(AUTO) 4.02 MIL/uL (4.0-5.2); WHITE BLOOD COUNT (AUTO) 9.2 K/uL (4.3-11.0)
--- NOTE | 2021-03-19 06:57 | NUR ---
RN CLOSING NOTE PATIENT AWAKE IN BED, A/O X 3. PATIENT CURRENTLY ON 3LPM VIA NC, TOLERATING WELL NO SOB, 99% O2 SAT. TELE MONITOR READS SR 60 BPM. PATIENT GIVEN TYLENOL 650 MG FOR MILD HEADACHE AND ABDOMINAL DISCOMFORT. PATIENT HAS A JANG CATHETER IN PLACE DRAINING VIA GRAVITY, YELLOW COLORED URINE. PATIENT HAS A R AC 18 G PATENT AND INTACT, SALINE LOCKED ONLY. SAFETY MEASURES IN PLACE: BED LOCKED AND IN LOWEST POSITION, CALL LIGHT WITHIN REACH, SIDE RAILS UP. HOB ELEVATED. ALL NEEDS MET AND ATTENDED, ALL ORDERS CARRIED OUT. WILL ENDORSE TO DAY SHIFT NURSE FOR TATYANA. BRUNO DTR - [phone]
[2021-03-19 07:23] LABS: ALBUMIN 3.1 g/dL (3.4-5.0); BILIRUBIN,TOTAL 0.2 mg/dL (0.2-1.0); CALCIUM, SERUM 9.5 mg/dL (8.5-10.1); CREATININE 1.1 mg/dL (0.6-1.3); MAGNESIUM 2.3 mg/dL (1.8-2.4); PHOSPHORUS 3.8 mg/dL (2.5-4.9); POTASSIUM 4.8 mmol/L (3.5-5.1); TOTAL PROTEIN, SERUM 7.9 g/dL (6.4-8.2)
--- NOTE | 2021-03-19 07:50 | NUR ---
ELECTRIC MOTOR MECHANIC OPENING NOTE Patient in bed, awake. A/O x 3, able to make needs known. On O2 at 3 LPM, breathing evenly and unlabored. No SOB or s/s of distress noted. IV access on RAC #18G SL, intact and patent. On tele monitoring showing SR, HR on the 60's. Arzate catheter in place draining to a yellow colored urine. Safety precautions in place: bed in low, locked position; siderails up x 2; call light within reach. Will continue to monitor.
[2021-03-19 08:00] VITALS: BP 148/57
[2021-03-19] MEDS: SPIRONOLACTONE 25 MG TABLET PO SCH ×2 (09:26→16:24)
[2021-03-19] MEDS: PANTOPRAZOLE 40 MG TABLET.DR PO SCH (09:26)
[2021-03-19] MEDS: DOCUSATE SODIUM 100 MG CAPSULE PO SCH (09:26)
[2021-03-19] MEDS: GABAPENTIN 100 MG CAPSULE PO SCH ×3 (09:26→16:24)
[2021-03-19] MEDS: ASPIRIN EC 81 MG TABLET.DR PO SCH (09:26)
[2021-03-19] MEDS: SERTRALINE HCL 50 MG TABLET PO SCH (09:26)
[2021-03-19] MEDS: CARVEDILOL 12.5 MG TABLET PO SCH ×2 (09:27→16:25)
[2021-03-19] MEDS: POTASSIUM CHLORIDE 20 MEQ TAB.PRT.SR PO SCH ×3 (09:27→11:06)
[2021-03-19] MEDS: POLYETHYLENE GLYCOL 3350 17 GM POWD.PACK PO SCH (09:27)
[2021-03-19] MEDS: FUROSEMIDE 40 MG/4 ML VIAL IV SCH ×3 (09:29→16:24)
[2021-03-19 12:00] VITALS: BP 144/64
[2021-03-19] MEDS: SOD FERRIC GLUC 125 MG in IV NS 0.9% 100 ML IV SCH (14:06)
[2021-03-19] MEDS: CEFTRIAXONE 1 G in IV D5W 50 ML IV SCH (15:47)
[2021-03-19 16:00] VITALS: BP 149/78
--- NOTE | 2021-03-19 16:24 | NUR ---
RN NOTE Patient complained of bloating in the stomach, PRN Maalox given. Will continue to monitor.
[2021-03-19] MEDS: HYDROCODONE/APAP 5/325MG TABLET PO PRN (16:39)
--- NOTE | 2021-03-19 16:39 | NUR ---
RN NOTE Patient complained of generalized pain 7/10, PRN [place] given. Will continue to monitor.
--- NOTE | 2021-03-19 17:00 | NUR ---
RN NOTE Patient's BS is 112, no Insulin coverage needed.
[2021-03-19] MEDS: ENOXAPARIN SODIUM 40 MG/0.4 ML DISP.SYRIN SQ SCH (17:46)
--- NOTE | 2021-03-19 18:55 | NUR ---
TOPOGRAPHICAL ENGINEER CLOSING NOTE Patient in bed, asleep. A/O x 3, able to make needs known. On O2 at 3 LPM, breathing evenly and unlabored. No SOB or s/s of distress noted. IV access on RAC #18G SL, intact and patent. On tele monitoring showing sinus bradycardia with PVCs, HR on the 50's. All needs attended to. Due meds given. Arzate catheter in place draining to a yellow colored urine with an output of 1350 cc. Safety precautions maintained: bed in low, locked position; siderails up x 2; call light within reach. Will endorse to layout operator nurse for TATYANA. Addendum: 03/19/21 at 1904 by CATRACHITO BLACKWOOD RN ADD: Patient turned and repositioned.
[2021-03-19 20:00] VITALS: BP 134/54
[2021-03-19] MEDS: ATORVASTATIN 40 MG TABLET PO SCH (21:37)
[2021-03-19] MEDS: INSULIN GLARGINE, 100 UNIT/ML CARTRIDGE SQ SCH (21:39)
--- NOTE | 2021-03-19 21:58 | NUR ---
UPDATE REGARDING PATIENT GIVEN TO NORA DAUGHTER, SHE STATED THAT WANT TO TALK TO WHEEL MOLDER BEFORE PROCEDURE THURSDAY, WILL ENDORSE O NEXT SHIFT TO F/U.
[2021-03-20] VITALS: BP 125/54
[2021-03-20] MEDS: BLOOD SUGAR DIAGNOSTIC 1 EACH STRIP IN SCH ×6 (01:03→21:09)
[2021-03-20] MEDS: INSULIN REGULAR, HUMAN 100 UNIT/ML 3 ML VIAL SQ PRN ×5 (01:05→21:11)
[2021-03-20 04:00] VITALS: BP 137/54
[2021-03-20 06:38] LABS: BASOPHILS # (AUTO) 0.1 K/uL (0.0-0.2); BASOPHILS % (AUTO) 0.6 % (0.0-2.0); EOSINOPHILS % (AUTO) 3.9 % (0.0-6.0); HEMATOCRIT 34 % (33-45); HEMOGLOBIN 11.6 g/dL (11.5-14.8); LYMPHOCYTES # (AUTO) 2.8 K/uL (0.8-4.8); LYMPHOCYTES % (AUTO) 26.7 % (20.0-44.0); MEAN CORPUSCULAR HGB CONC 34 g/dl (31.0-36.0); MEAN CORPUSCULAR VOLUME 87 fL (82-100); MONOCYTES # (AUTO) 1.2 K/uL (0.1-1.30); MONOCYTES % (AUTO) 11.2 % (2.0-12.0); NEUTROPHILS % (AUTO) 57.6 % (43.0-81.0); PLATELET COUNT (AUTO) 330 K/uL (150-450); RED BLOOD CELL COUNT(AUTO) 3.93 MIL/uL (4.0-5.2); WHITE BLOOD COUNT (AUTO) 10.5 K/uL (4.3-11.0)
--- NOTE | 2021-03-20 06:43 | NUR ---
RN CLOSING NOTES PATIENT ASLEEP IN BED, ON 3LPM VIA NC WITH 96% O2 SAT LEVEL, NO SOB/ACUTE DISTRESS NOTED, NSR IN TELE MONITOR, NSR IN TELE MONITOR WITH HR 50-70S, NO SIGNIFICANT CHANGE IN CONDITION DURING THE NIGHT, ALL SAFETY MEASURES IN PLACE, BED IN LOW AND LOCK POSITION, REPOSITION PROVIDED, CALL LIGHT WITHIN REACH, SIDE RAILS UP X2, WILL ENDORSE CONTINUITY OF CARE TO ONCOMING NURSE
--- NOTE | 2021-03-20 07:25 | NUR ---
RN OPENING NOTES PATIENT AWAKE IN BED, ALERT AND ORIENTED, ON 3LPM VIA NC WITH 98% O2 SAT LEVEL, NO SOB/ACUTE DISTRESS NOTED, NSR TO SINUS IRVIN IN TELE MONITOR. PATIENT WITH RIGHT AC G 18 PATENT AND INTACT. WITH JANG CATHETER TO URINE BAG WITH YELLOWISH OUTPUT. ALL SAFETY MEASURES IN PLACE, BED IN LOW AND LOCK POSITION, REPOSITION PROVIDED, CALL LIGHT WITHIN REACH, SIDE RAILS UP X2, WILL CONTINUE TO MONITOR PATIENT.
[2021-03-20 07:32] LABS: BILIRUBIN,TOTAL 0.3 mg/dL (0.2-1.0); CALCIUM, SERUM 9.6 mg/dL (8.5-10.1); CREATININE 1.2 mg/dL (0.6-1.3); PHOSPHORUS 4.2 mg/dL (2.5-4.9); POTASSIUM 5.1 mmol/L (3.5-5.1)
[2021-03-20 07:33] LABS: ALBUMIN 3.1 g/dL (3.4-5.0); MAGNESIUM 2.6 mg/dL (1.8-2.4); TOTAL PROTEIN, SERUM 7.5 g/dL (6.4-8.2)
[2021-03-20 08:00] VITALS: BP 152/54
[2021-03-20] MEDS: CARVEDILOL 12.5 MG TABLET PO SCH ×2 (09:00→16:52)
[2021-03-20] MEDS: ASPIRIN EC 81 MG TABLET.DR PO SCH (09:00)
[2021-03-20] MEDS: POLYETHYLENE GLYCOL 3350 17 GM POWD.PACK PO SCH (09:01)
[2021-03-20] MEDS: GABAPENTIN 100 MG CAPSULE PO SCH ×3 (09:01→16:51)
[2021-03-20] MEDS: SPIRONOLACTONE 25 MG TABLET PO SCH ×2 (09:01→16:51)
[2021-03-20] MEDS: SERTRALINE HCL 50 MG TABLET PO SCH (09:01)
[2021-03-20] MEDS: PANTOPRAZOLE 40 MG TABLET.DR PO SCH (09:01)
[2021-03-20] MEDS: DOCUSATE SODIUM 100 MG CAPSULE PO SCH (09:01)
[2021-03-20 12:00] VITALS: BP 110/56
[2021-03-20] MEDS: FUROSEMIDE 100 MG/10 ML VIAL IV SCH ×3 (12:04→19:12)
[2021-03-20] MEDS: SOD FERRIC GLUC 125 MG in IV NS 0.9% 100 ML IV SCH (14:52)
[2021-03-20] MEDS: CEFTRIAXONE 1 G in IV D5W 50 ML IV SCH (15:46)
[2021-03-20 16:00] VITALS: BP 137/56
[2021-03-20] MEDS: ENOXAPARIN SODIUM 40 MG/0.4 ML DISP.SYRIN SQ SCH (17:49)
--- NOTE | 2021-03-20 18:50 | NUR ---
RN NOTE SECURED CONSENT FROM DAUGHTER BRUNO AND WITNESSED BY ANOTHER NURSE. PATIENT SPEAKS LITTLE JAPANESE, AND WANTS DAUGHTER TO MAKE DECISIONS ON HER BEHALF. CONSENTS SECURED AND ATTACHED TO CHART.
--- NOTE | 2021-03-20 19:09 | NUR ---
RN CLOSING NOTES PATIENT AWAKE IN BED, ALERT AND ORIENTED, ON 3LPM VIA NC WITH 98% O2 SAT LEVEL, NO SOB/ACUTE DISTRESS NOTED, NSR TO SINUS IRVIN IN TELE MONITOR. PATIENT WITH RIGHT AC G 18 PATENT AND INTACT. WITH JANG CATHETER TO URINE BAG WITH YELLOWISH OUTPUT. ALL SAFETY MEASURES IN PLACE, BED IN LOW AND LOCK POSITION, REPOSITION PROVIDED, CALL LIGHT WITHIN REACH, SIDE RAILS UP X2, WILL ENDORSE TO NEXT SHIFT FOR CONTINUITY OF CARE
[2021-03-20 20:00] VITALS: BP 132/61
[2021-03-20] MEDS: ATORVASTATIN 40 MG TABLET PO SCH (21:00)
[2021-03-20] MEDS: INSULIN GLARGINE, 100 UNIT/ML CARTRIDGE SQ SCH (21:48)
--- NOTE | 2021-03-20 21:48 | NUR ---
Lantus held patient will be npo overnight
[2021-03-21] VITALS (7 sets, daily range): BP systolic 124–197; BP diastolic 59–77
[2021-03-21] MEDS: BLOOD SUGAR DIAGNOSTIC 1 EACH STRIP IN SCH ×6 (00:54→21:45)
[2021-03-21] MEDS: INSULIN REGULAR, HUMAN 100 UNIT/ML 3 ML VIAL SQ PRN ×4 (00:56→21:45)
--- NOTE | 2021-03-21 06:45 | NUR ---
Patient has been stable overnight, no signs of distress A&Ox3, able to make needs known. Has been NPO since midnight for cardiac cath in AM. SB/SR on monitor 50s 60s. Urine output 1700mL. RAC #18G IV patent and intact. No s/s of hyperglycemic reaction.
[2021-03-21 06:51] LABS: BASOPHILS # (AUTO) 0.1 K/uL (0.0-0.2); BASOPHILS % (AUTO) 0.4 % (0.0-2.0); EOSINOPHILS % (AUTO) 3.4 % (0.0-6.0); HEMATOCRIT 34 % (33-45); HEMOGLOBIN 11.2 g/dL (11.5-14.8); LYMPHOCYTES % (AUTO) 25.1 % (20.0-44.0); MEAN CORPUSCULAR HGB CONC 33 g/dl (31.0-36.0); MEAN CORPUSCULAR VOLUME 86 fL (82-100); MONOCYTES % (AUTO) 8.8 % (2.0-12.0); NEUTROPHILS # (AUTO) 7.4 K/uL (1.8-8.9); NEUTROPHILS % (AUTO) 62.3 % (43.0-81.0); PLATELET COUNT (AUTO) 370 K/uL (150-450); RED BLOOD CELL COUNT(AUTO) 3.88 MIL/uL (4.0-5.2); WHITE BLOOD COUNT (AUTO) 11.9 K/uL (4.3-11.0)
[2021-03-21 07:19] LABS: BILIRUBIN,TOTAL 0.3 mg/dL (0.2-1.0); CALCIUM, SERUM 9.1 mg/dL (8.5-10.1); CREATININE 1.1 mg/dL (0.6-1.3); MAGNESIUM 2.5 mg/dL (1.8-2.4); PHOSPHORUS 4.3 mg/dL (2.5-4.9); POTASSIUM 4.6 mmol/L (3.5-5.1); TOTAL PROTEIN, SERUM 7.4 g/dL (6.4-8.2)
[2021-03-21] MEDS: PANTOPRAZOLE 40 MG TABLET.DR PO SCH (07:30)
--- NOTE | 2021-03-21 07:57 | NUR ---
RN OPENING NOTES RECEIVED Pt IN BED, Pt IS A/Ox3 AT THIS TIME. Pt IS ON 3L VIA NC AND TOLERATING WELL. NO COMPLAINTS OF PAIN AND NO SIGNS OF DISTRESS MADE. BED SIDE TABLE AND CALL LIGHT ARE WITHIN REACH. WILL CONTINUE TO MONITOR THROUGHOUT THE SHIFT.
[2021-03-21] MEDS: SPIRONOLACTONE 25 MG TABLET PO SCH ×2 (08:21→17:19)
[2021-03-21] MEDS: CARVEDILOL 12.5 MG TABLET PO SCH ×3 (08:22→17:19)
[2021-03-21] MEDS: DOCUSATE SODIUM 100 MG CAPSULE PO SCH (08:22)
[2021-03-21] MEDS: SERTRALINE HCL 50 MG TABLET PO SCH (08:22)
[2021-03-21] MEDS: GABAPENTIN 100 MG CAPSULE PO SCH ×3 (08:22→17:18)
[2021-03-21] MEDS: POLYETHYLENE GLYCOL 3350 17 GM POWD.PACK PO SCH (08:22)
[2021-03-21] MEDS: ASPIRIN EC 81 MG TABLET.DR PO SCH (08:22)
--- NOTE | 2021-03-21 08:22 | NUR ---
RN NOTES AM MEDS HELD Pt IS NPO AND AWAITING TO BE TAKEN TO [facility] HOME [facility]ER FOR PROCEDURE. WILL CONTINUE TO MONITOR.
[2021-03-21] MEDS ORDERED: LIDOCAINE HCL/PF 1% 30 ML SDV ONE (08:30)
[2021-03-21] MEDS ORDERED: NITROGLYCERIN IN 5 % DEXTROSE 250 ML IV ONE (08:30)
[2021-03-21] MEDS ORDERED: IV NS 0.9% 1,000 ML ONE (08:30)
[2021-03-21] MEDS ORDERED: IODIXANOL 150 ML IV ONE (08:30)
[2021-03-21] MEDS ORDERED: MIDAZOLAM HCL 2 MG/2ML VIAL ONE (09:09)
[2021-03-21] MEDS ORDERED: hydrALAZINE HCL IV 20 MG VIAL ONE (09:09)
[2021-03-21] MEDS ORDERED: FENTANYL PF 100MCG/2ML AMPUL ONE (09:09)
[2021-03-21] MEDS: SOD FERRIC GLUC 125 MG in IV NS 0.9% 100 ML IV SCH (13:57)
[2021-03-21] MEDS: CEFTRIAXONE 1 G in IV D5W 50 ML IV SCH (15:15)
[2021-03-21] MEDS: HYDROCODONE/APAP 5/325MG TABLET PO PRN (17:19)
[2021-03-21] MEDS: ENOXAPARIN SODIUM 40 MG/0.4 ML DISP.SYRIN SQ SCH (17:34)
--- NOTE | 2021-03-21 18:27 | NUR ---
STAKE DRIVER CLOSING NOTES Pt IS AWAKE IN BED. A/Ox4 AT THIS TIME. Pt IS ITALIAN SPEAKING. Pt WITH NO COMPLAINTS OF PAIN AND NO SIGNS OF DISTRESS AT THIS TIME. Pt IS ON NC 3L AND TOLERATING WELL. ALL NEEDS MET, ALL DUE MEDS GIVEN. SAFETY MEASURES ARE IN PLACE: BED IS LOCKED AND IN LOWEST POSITION. SIDE RAILS UPx3. BED SIDE TABLE AND CALL LIGHT WITHIN REACH. WILL ENDORSE TO ON COMING SHIFT.
--- NOTE | 2021-03-21 20:00 | NUR ---
COUNTER POCKET TRIMMER OPENING NOTES RECEIVED PATIENT AWAKE IN BED, ALERT AND ORIENTED,X3 ON 3LPM VIA NC WITH 99% O2 SAT LEVEL, NO SOB/ACUTE DISTRESS NOTED, NSR TO SINUS IRVIN 55 IN TELE MONITOR. PATIENT WITH RIGHT AC G 18 PATENT AND INTACT. WITH JANG CATHETER TO URINE BAG WITH YELLOWISH OUTPUT. ALL SAFETY MEASURES IN PLACE, BED IN LOW AND LOCK POSITION, REPOSITION PROVIDED, CALL LIGHT WITHIN REACH, SIDE RAILS UP X2, WILL CONTINUE TO MONITOR PATIENT.
[2021-03-21] MEDS: ACETAMINOPHEN 325 MG TABLET PO PRN (20:13)
[2021-03-21] MEDS: ATORVASTATIN 40 MG TABLET PO SCH (21:17)
[2021-03-21] MEDS: INSULIN GLARGINE, 100 UNIT/ML CARTRIDGE SQ SCH (21:40)
--- NOTE | 2021-03-21 21:49 | NUR ---
radiotelegraphist notes Blood sugar for 2100hrs is 342 -lantus 16 units given as ordered and regular insulin 16 units per sliding scale .pts on po diet will chech blood sugar again in 4 hrs.
[2021-03-22] VITALS: BP 139/53
[2021-03-22] MEDS: INSULIN REGULAR, HUMAN 100 UNIT/ML 3 ML VIAL SQ PRN ×5 (00:54→21:43)
[2021-03-22] MEDS: BLOOD SUGAR DIAGNOSTIC 1 EACH STRIP IN SCH ×7 (00:56→21:48)
--- NOTE | 2021-03-22 00:58 | NUR ---
telephone clerk telegraph office notes Blood sugar at 0100hrs is 233 =8 units of regular insulin given per sliding scale will check again in 4 hrs which is 5am.
[2021-03-22 04:00] VITALS: BP 137/64
--- NOTE | 2021-03-22 05:22 | NUR ---
director telemetry notes Blood sugar at 5am is 108=n0 coverage given per sliding scale.
--- NOTE | 2021-03-22 06:46 | NUR ---
INFORMATION TECHNOLOGY DATA ANALYST NOTES PTS IN BED. A/Ox3 ON 3LITERS OF O2 VIA NC. TOLERATING WELL. NO COMPLAINTS OF PAIN AND NO SIGNS OF DISTRESS AT THIS TIME.SAFETY MEASURES ARE IN PLACE: BED IS LOCKED AND IN LOWEST POSITION. WOODWORKING MACHINE SETTER RAILS UPx2. BED SIDE TABLE AND CALL LIGHT ARE WITHIN REACH. WILL ENDORSE TO RN DAY SHIFT FOR CONTINUITY OF CARE.
[2021-03-22 07:03] LABS: CALCIUM, SERUM 8.8 mg/dL (8.5-10.1); CREATININE 1.1 mg/dL (0.6-1.3); MAGNESIUM 2.7 mg/dL (1.8-2.4); POTASSIUM 4.1 mmol/L (3.5-5.1)
[2021-03-22 07:53] LABS: BASOPHILS # (AUTO) 0.1 K/uL (0.0-0.2); BASOPHILS % (AUTO) 0.5 % (0.0-2.0); HEMATOCRIT 34 % (33-45); HEMOGLOBIN 11.5 g/dL (11.5-14.8); LYMPHOCYTES % (AUTO) 29.4 % (20.0-44.0); MEAN CORPUSCULAR HGB CONC 34 g/dl (31.0-36.0); MEAN CORPUSCULAR VOLUME 87 fL (82-100); MONOCYTES % (AUTO) 9.8 % (2.0-12.0); NEUTROPHILS # (AUTO) 5.8 K/uL (1.8-8.9); NEUTROPHILS % (AUTO) 57.3 % (43.0-81.0); PLATELET COUNT (AUTO) 407 K/uL (150-450); RED BLOOD CELL COUNT(AUTO) 3.92 MIL/uL (4.0-5.2); WHITE BLOOD COUNT (AUTO) 10.2 K/uL (4.3-11.0)
[2021-03-22 08:00] VITALS: BP_SYST 126; BP_SYST 148; BP_DIAS 51; BP_DIAS 56
[2021-03-22] MEDS: DOCUSATE SODIUM 100 MG CAPSULE PO SCH (08:27)
[2021-03-22] MEDS: GABAPENTIN 100 MG CAPSULE PO SCH ×3 (08:27→17:08)
[2021-03-22] MEDS: POLYETHYLENE GLYCOL 3350 17 GM POWD.PACK PO SCH (08:27)
[2021-03-22] MEDS: SPIRONOLACTONE 25 MG TABLET PO SCH ×2 (08:27→17:08)
[2021-03-22] MEDS: PANTOPRAZOLE 40 MG TABLET.DR PO SCH (08:27)
[2021-03-22] MEDS: ASPIRIN EC 81 MG TABLET.DR PO SCH (08:30)
[2021-03-22] MEDS: CARVEDILOL 12.5 MG TABLET PO SCH ×2 (08:30→17:08)
[2021-03-22] MEDS: SERTRALINE HCL 50 MG TABLET PO SCH (08:30)
[2021-03-22] MEDS: HYDROCODONE/APAP 5/325MG TABLET PO PRN (09:02)
[2021-03-22] MEDS ORDERED: IV NS 0.9% 1,000 ML IV ONE (11:30)
[2021-03-22 12:00] VITALS: BP 126/51
[2021-03-22] MEDS: CEFTRIAXONE 1 G in IV D5W 50 ML IV SCH (15:24)
[2021-03-22 16:00] VITALS: BP 136/59
[2021-03-22] MEDS: ENOXAPARIN SODIUM 40 MG/0.4 ML DISP.SYRIN SQ SCH (17:09)
[2021-03-22 20:00] VITALS: BP 137/55
--- NOTE | 2021-03-22 20:00 | NUR ---
HOSPITAL SUPERVISOR OPENING NOTES RECEIVED PATIENT AWAKE IN BED, ALERT AND ORIENTED,X3 ON 3LPM VIA NC WITH 99% O2 SAT LEVEL, NO SOB NO DISTRESS NOTED, NSR TO SINUS IRVIN 58 IN TELE MONITOR. PATIENT WITH RIGHT AC G 18 PATENT AND INTACT. WITH JANG CATHETER TO URINE BAG WITH YELLOWISH OUTPUT. ALL SAFETY MEASURES IN PLACE, BED IN LOW AND LOCK POSITION, REPOSITION PROVIDED, CALL LIGHT WITHIN REACH, SIDE RAILS UP X2, WILL CONTINUE TO MONITOR PATIENT. SPOKE TO DAUGHTER NORA UPDATED WITH PTS CONDITION . PTS REQUESTING TO SPEAK TO DR MCNAIR .WILL ENDORSE TO RN DAY SHIFT .
[2021-03-22] MEDS: ATORVASTATIN 40 MG TABLET PO SCH (21:40)
[2021-03-22] MEDS: INSULIN GLARGINE, 100 UNIT/ML CARTRIDGE SQ SCH (21:41)
--- NOTE | 2021-03-22 21:50 | NUR ---
television announcer notes Blood sugar at 10pm is 237 =16 units of lantus given as ordered and 8 units of regular insulin per sliding scale given .pts on po diet.
[2021-03-23] VITALS: BP 130/47
[2021-03-23] MEDS: INSULIN REGULAR, HUMAN 100 UNIT/ML 3 ML VIAL SQ PRN ×6 (01:05→21:00)
--- NOTE | 2021-03-23 01:08 | NUR ---
cable television program director notes Blood sugar at 0100hrs is 163 =4 units of regular insulin given per sliding scale will check again in 4 hrs which is 5am.
[2021-03-23 04:00] VITALS: BP 144/55
[2021-03-23] MEDS: BLOOD SUGAR DIAGNOSTIC 1 EACH STRIP IN SCH ×5 (05:20→21:02)
--- NOTE | 2021-03-23 05:41 | NUR ---
telehealth director notes Blood sugar at 0500hrs is 155 =4 units of regular insulin given per sliding scale will check again in 4 hrs which is 9am.
--- NOTE | 2021-03-23 06:35 | NUR ---
FORENSIC SCIENCE EXAMINER NOTES PTS IN BED. A/Ox3 ON 3LITERS OF O2 VIA NC. TOLERATING WELL. NO COMPLAINTS OF PAIN AND NO SIGNS OF DISTRESS AT THIS TIME.PTS HAD BMX1 SMALL AMT ,SAFETY MEASURES ARE IN PLACE: BED IS LOCKED AND IN LOWEST POSITION. PRINCIPAL ARCHAEOLOGIST RAILS UPx2. BED SIDE TABLE AND CALL LIGHT ARE WITHIN REACH. WILL ENDORSE TO RN DAY SHIFT FOR CONTINUITY OF CARE.
[2021-03-23 07:00] LABS: BASOPHILS # (AUTO) 0.1 K/uL (0.0-0.2); BASOPHILS % (AUTO) 0.6 % (0.0-2.0); HEMATOCRIT 33 % (33-45); HEMOGLOBIN 11.1 g/dL (11.5-14.8); LYMPHOCYTES # (AUTO) 2.6 K/uL (0.8-4.8); LYMPHOCYTES % (AUTO) 28.9 % (20.0-44.0); MEAN CORPUSCULAR HGB CONC 34 g/dl (31.0-36.0); MEAN CORPUSCULAR VOLUME 87 fL (82-100); MONOCYTES # (AUTO) 0.9 K/uL (0.1-1.30); NEUTROPHILS # (AUTO) 5.2 K/uL (1.8-8.9); NEUTROPHILS % (AUTO) 57.5 % (43.0-81.0); PLATELET COUNT (AUTO) 428 K/uL (150-450); RED BLOOD CELL COUNT(AUTO) 3.79 MIL/uL (4.0-5.2); WHITE BLOOD COUNT (AUTO) 9.1 K/uL (4.3-11.0)
[2021-03-23 07:06] LABS: CALCIUM, SERUM 8.8 mg/dL (8.5-10.1); MAGNESIUM 2.7 mg/dL (1.8-2.4); PHOSPHORUS 3.6 mg/dL (2.5-4.9); POTASSIUM 4.6 mmol/L (3.5-5.1)
[2021-03-23 08:00] VITALS: BP 115/65
--- NOTE | 2021-03-23 08:08 | NUR ---
RN Opening Note Patient received in bed, AO x 3, no distress observed, able to responds all stimuli. Respiratory even and unlabored with oxygen at 3Ls. Skin is warm to touch, keep clean/dry, intact IV site. Kept elevated HOB for ensure airway/aspiration precaution and remain lower position of the bed for safety. call light within reach, will continue to monitor.
[2021-03-23] MEDS: DOCUSATE SODIUM 100 MG CAPSULE PO SCH (08:18)
[2021-03-23] MEDS: GABAPENTIN 100 MG CAPSULE PO SCH ×3 (08:18→17:22)
[2021-03-23] MEDS: SERTRALINE HCL 50 MG TABLET PO SCH (08:18)
[2021-03-23] MEDS: POLYETHYLENE GLYCOL 3350 17 GM POWD.PACK PO SCH (08:18)
[2021-03-23] MEDS: PANTOPRAZOLE 40 MG TABLET.DR PO SCH (08:18)
[2021-03-23] MEDS: ASPIRIN EC 81 MG TABLET.DR PO SCH (08:19)
[2021-03-23] MEDS: SPIRONOLACTONE 25 MG TABLET PO SCH ×2 (08:19→18:33)
[2021-03-23] MEDS: CARVEDILOL 12.5 MG TABLET PO SCH ×2 (08:20→18:37)
[2021-03-23] MEDS ORDERED: IV NS 0.9% 1,000 ML IV ONE (10:30)
[2021-03-23 12:00] VITALS: BP 125/63
--- NOTE | 2021-03-23 13:30 | NUR ---
Daughter/Susan requesting talk with MD and informed MD.
[2021-03-23] MEDS: CEFTRIAXONE 1 G in IV D5W 50 ML IV SCH (15:14)
[2021-03-23 16:00] VITALS: BP 133/45
--- NOTE | 2021-03-23 16:46 | NUR ---
Patient HR 55 to 60, and bp-133/45 at 1630. Left message to CARLY/Eulogio x 2, waiting response.
[2021-03-23] MEDS: ENOXAPARIN SODIUM 40 MG/0.4 ML DISP.SYRIN SQ SCH (17:55)
--- NOTE | 2021-03-23 18:27 | NUR ---
RN Closing Note Patient is resting in bed, no distress observed. Respiratory even and unlabored with oxygen at 3Ls. Skin is warm to touch, keep clean/dry, intact IV site. Kept elevated HOB for ensure airway and aspiration precaution, Also lower position of the bed for safety. Patient bp-133/45, HR 55 to 60 during day shift, said ok to give it Coreg and Aldactone both. No adverse reaction observed form antibiotics. Call light within reach, all needs met. will endorse shift supervisor film processing.
[2021-03-23 20:00] VITALS: BP 142/51
--- NOTE | 2021-03-23 20:00 | NUR ---
CAREER DEVELOPMENT ENGINEER OPENING NOTES RECEIVED PATIENT AWAKE IN BED, ALERT AND ORIENTED,X3 ON 3LPM VIA NC WITH 94% O2 SAT LEVEL, NO SOB NO DISTRESS NOTED, NSR TO SINUS IRVIN 58 IN TELE MONITOR. PATIENT WITH RIGHT AC G 18 PATENT AND INTACT. WITH JANG CATHETER TO URINE BAG WITH YELLOWISH OUTPUT. ALL SAFETY MEASURES IN PLACE, BED IN LOW AND LOCK POSITION, REPOSITION PROVIDED, CALL LIGHT WITHIN REACH, SIDE RAILS UP X2, WILL CONTINUE TO MONITOR PATIENT.VITAL SIGNS STABLE AFEBRILE. SPOKE TO DAUGHTER NORA UPDATED WITH PTS CONDITION . STILL REQUESTING TO SPEAK TO DR MCNAIR .WILL ENDORSE TO RN DAY SHIFT .
[2021-03-23] MEDS: INSULIN GLARGINE, 100 UNIT/ML CARTRIDGE SQ SCH (21:01)
[2021-03-23] MEDS: ATORVASTATIN 40 MG TABLET PO SCH (21:02)
--- NOTE | 2021-03-23 21:05 | NUR ---
teletype installer notes Blood sugar at 9pm is 189=16 u of lantus given as order and 4 units of regular insulin given per sliding scale.pts on po diet.
[2021-03-24] VITALS: BP 124/56
[2021-03-24] MEDS: BLOOD SUGAR DIAGNOSTIC 1 EACH STRIP IN SCH ×6 (01:35→21:23)
[2021-03-24] MEDS: INSULIN REGULAR, HUMAN 100 UNIT/ML 3 ML VIAL SQ PRN ×6 (01:35→21:29)
--- NOTE | 2021-03-24 01:37 | NUR ---
telesales agent notes Blood sugar for 1am is 127 = n0 insulin coverage given per sliding scale.
[2021-03-24 04:00] VITALS: BP 127/62
--- NOTE | 2021-03-24 04:39 | NUR ---
telemarketer notes Blood sugar for 5am is 160=2 units of regular insulin given per slididing scale ,pts on po diet.
--- NOTE | 2021-03-24 05:48 | NUR ---
RN Closing Note Patient iin bed comfortable no distress observed. Respiratory even and unlabored with oxygen at 3L via nc . keep pts clean/dry, intact IV site. Kept elevated HOB for ensure airway and aspiration precaution, Call light within reach, all needs met. daughter meaghan requesting to talk to dr smith regarding update and plan of care will endorse rn day shift for continuityof care.
[2021-03-24] MEDS: HYDROCODONE/APAP 5/325MG TABLET PO PRN ×2 (06:16→21:09)
--- NOTE | 2021-03-24 06:16 | NUR ---
COFFEE MAKER SERVICER NOTES PTS C/O OF RIGHT LEG PAIN NORCO 1 TAB GIVEN PRN ORDERED. WILL CONTINUE TO MONITOR.
--- NOTE | 2021-03-24 07:50 | NUR ---
singing telegram performer note patient in bed , all needs attended , on3l na no sob noted at this time, rt ac hl intact , bed in lowest and locked position, on tele monitor, sb hr 59, bed in lowest and locked position , call light within reach , will monitor
[2021-03-24 08:00] VITALS: BP 155/54
[2021-03-24] MEDS: CARVEDILOL 12.5 MG TABLET PO SCH ×2 (09:00→16:45)
[2021-03-24] MEDS: POLYETHYLENE GLYCOL 3350 17 GM POWD.PACK PO SCH (09:00)
[2021-03-24] MEDS: ASPIRIN EC 81 MG TABLET.DR PO SCH (09:03)
[2021-03-24] MEDS: SERTRALINE HCL 50 MG TABLET PO SCH (09:03)
[2021-03-24] MEDS: GABAPENTIN 100 MG CAPSULE PO SCH ×3 (09:03→16:45)
[2021-03-24] MEDS: DOCUSATE SODIUM 100 MG CAPSULE PO SCH (09:04)
[2021-03-24] MEDS: PANTOPRAZOLE 40 MG TABLET.DR PO SCH (09:05)
[2021-03-24] MEDS: SPIRONOLACTONE 25 MG TABLET PO SCH ×2 (09:06→16:47)
--- NOTE | 2021-03-24 11:20 | NUR ---
radio television technical director note patent wants to remove Arzate cath ,feels uncomfortable called to Toney Velásquez with order ok to remove Arzate cath Addendum: 03/24/21 at 1149 by SHAE VALLADARES RN Arzate cath remove per order Toney ricciu
[2021-03-24 12:00] VITALS: BP 161/60
[2021-03-24] MEDS: CEFTRIAXONE 1 G in IV D5W 50 ML IV SCH (14:38)
--- NOTE | 2021-03-24 15:00 | NUR ---
teletypesetter monitor note able to urinate keep clean dry
[2021-03-24 16:00] VITALS: BP 143/47
[2021-03-24] MEDS: ENOXAPARIN SODIUM 40 MG/0.4 ML DISP.SYRIN SQ SCH (17:14)
--- NOTE | 2021-03-24 18:54 | NUR ---
receptionist telephone operator note rounds made , all needs attended, not in ditress, on o2 as toleraed, will cont to monitor closely , call light within reach
--- NOTE | 2021-03-24 19:25 | NUR ---
RADIOPHARMACIST OPENING NOTES PATIENT LAYING AWAKE IN BED. A/OX3. PATIENT WITH REGULAR AND UNLABORED BREATHING ON 3 LPM VIA NASAL CANULA TOLERATED WELL. NO SIGNS AND SYMPTOMS OF DISCOMFORT NOTED AT THIS TIME. NO COMPLAINS OF PAIN OR DISCOMFORT AT THIS TIME. IV ACCESS RAC G #18 SL. IV ACCESS PATENT AND INTACT. SAFETY PRECAUTIONS ENFORCED WITH BED LOCKED AND AT LOWEST POSITION. SIDERAILS UP X2. CALL LIGHT WITHIN REACH AT ALL TIMES. WILL CONTINUE TO MONITOR PATIENT.
[2021-03-24 20:00] VITALS: BP_SYST 143; BP_SYST 170; BP_DIAS 43; BP_DIAS 77
[2021-03-24] MEDS: ATORVASTATIN 40 MG TABLET PO SCH (21:09)
[2021-03-24] MEDS: INSULIN GLARGINE, 100 UNIT/ML CARTRIDGE SQ SCH (21:27)
[2021-03-25] VITALS: BP_SYST 123; BP_SYST 166; BP_DIAS 47; BP_DIAS 80
[2021-03-25] MEDS: BLOOD SUGAR DIAGNOSTIC 1 EACH STRIP IN SCH ×5 (01:51→16:26)
[2021-03-25] MEDS: INSULIN REGULAR, HUMAN 100 UNIT/ML 3 ML VIAL SQ PRN ×5 (01:54→16:30)
[2021-03-25 04:00] VITALS: BP 136/44
[2021-03-25 07:20] LABS: ALBUMIN 2.9 g/dL (3.4-5.0); BILIRUBIN,TOTAL 0.3 mg/dL (0.2-1.0); CALCIUM, SERUM 8.6 mg/dL (8.5-10.1); MAGNESIUM 2.7 mg/dL (1.8-2.4); PHOSPHORUS 3.3 mg/dL (2.5-4.9); POTASSIUM 4.4 mmol/L (3.5-5.1); TOTAL PROTEIN, SERUM 7.1 g/dL (6.4-8.2)
--- NOTE | 2021-03-25 07:30 | NUR ---
PURCHASING ANALYST CLOSING NOTES PATIENT STILL LAYING AWAKE IN BED. A/OX3. PATIENT WITH REGULAR AND UNLABORED BREATHING ON 3 LPM VIA NASAL CANULA TOLERATED WELL. NO SIGNS AND SYMPTOMS OF DISCOMFORT NOTED AT THIS TIME. NO COMPLAINS OF PAIN OR DISCOMFORT AT THIS TIME. IV ACCESS RAC G #18 SL. IV ACCESS PATENT AND INTACT. SAFETY PRECAUTIONS ENFORCED WITH BED LOCKED AND AT LOWEST POSITION. SIDERAILS UP X2. CALL LIGHT WITHIN REACH AT ALL TIMES. WILL ENDORSE CONTINUITY OF CARE TO DAY SHIFT NURSE.
--- NOTE | 2021-03-25 07:30 | NUR ---
RN OPENING NOTE PATIENT RESTING UPON ASSESSMENT.. A/OX3. PATIENT WITH REGULAR AND UNLABORED BREATHING ON 3 LPM VIA NASAL CANULA TOLERATING WELL WITH 98% O2SAT. NO SIGNS AND SYMPTOMS OF DISCOMFORT NOTED AT THIS TIME. NO COMPLAINS OF PAIN OR DISCOMFORT AT THIS TIME. IV ACCESS RAC G #18 SL. IV ACCESS PATENT AND INTACT. SAFETY PRECAUTIONS ENFORCED WITH BED LOCKED AND AT LOWEST POSITION. SIDERAILS UP X2. CALL LIGHT WITHIN REACH AT ALL TIMES. WILL CONTINUE TO MONITOR.
[2021-03-25 07:31] LABS: BASOPHILS # (AUTO) 0.1 K/uL (0.0-0.2); BASOPHILS % (AUTO) 0.9 % (0.0-2.0); EOSINOPHILS % (AUTO) 3.4 % (0.0-6.0); HEMATOCRIT 32 % (33-45); HEMOGLOBIN 10.8 g/dL (11.5-14.8); LYMPHOCYTES # (AUTO) 2.8 K/uL (0.8-4.8); LYMPHOCYTES % (AUTO) 29.6 % (20.0-44.0); MEAN CORPUSCULAR HGB CONC 34 g/dl (31.0-36.0); MEAN CORPUSCULAR VOLUME 88 fL (82-100); MONOCYTES # (AUTO) 0.9 K/uL (0.1-1.30); MONOCYTES % (AUTO) 9.3 % (2.0-12.0); NEUTROPHILS # (AUTO) 5.4 K/uL (1.8-8.9); NEUTROPHILS % (AUTO) 56.8 % (43.0-81.0); PLATELET COUNT (AUTO) 405 K/uL (150-450); RED BLOOD CELL COUNT(AUTO) 3.64 MIL/uL (4.0-5.2); WHITE BLOOD COUNT (AUTO) 9.4 K/uL (4.3-11.0)
[2021-03-25 08:00] VITALS: BP 152/80
[2021-03-25] MEDS: PANTOPRAZOLE 40 MG TABLET.DR PO SCH (09:03)
[2021-03-25] MEDS: SERTRALINE HCL 50 MG TABLET PO SCH (09:03)
[2021-03-25] MEDS: GABAPENTIN 100 MG CAPSULE PO SCH ×3 (09:03→16:12)
[2021-03-25] MEDS: DOCUSATE SODIUM 100 MG CAPSULE PO SCH (09:04)
[2021-03-25] MEDS: SPIRONOLACTONE 25 MG TABLET PO SCH ×2 (09:09→16:12)
[2021-03-25] MEDS: POLYETHYLENE GLYCOL 3350 17 GM POWD.PACK PO SCH (09:12)
[2021-03-25] MEDS: CARVEDILOL 12.5 MG TABLET PO SCH ×2 (09:16→16:12)
[2021-03-25] MEDS: ASPIRIN EC 81 MG TABLET.DR PO SCH (09:16)
[2021-03-25 12:00] VITALS: BP 133/63
[2021-03-25] MEDS: CEFTRIAXONE 1 G in IV D5W 50 ML IV SCH (14:44)
[2021-03-25 16:00] VITALS: BP 133/53
[2021-03-25 16:12] VITALS: BP 133/53
--- NOTE | 2021-03-25 17:30 | NUR ---
PUBLIC HEALTH INFORMATICIAN NOTE PATIENT TO BE TRANSFERRED TO [facility]. GAVE REPORT TO VIVIENNE. PATIENT VITALS STABLE UPON ASSESSMENT. A/0X3. PT ON 3LPM O2 VIA NASAL CANNULA TOLERATING WELL WITH 98% O2SAT AND NO SIGN OF SOB OR DISTRESS. PATIENT IS INCONTINENT AND IN DIAPER AT TIME OF DISCHARGE. PATIENT HAD RAC REMOVED PRIOR TO DISCHARGE. PATIENT WAS TRANSFERRED VIA AMBULANCE WITH TWO EMT'S. EMT'S MADE AWARE OF PATIENT CONDITION VIA BEDSIDE REPORT. PATIENT STABLE UPON TRANSFER OF CARE TO EMT'S.
[2021-03-25] MEDS: ENOXAPARIN SODIUM 40 MG/0.4 ML DISP.SYRIN SQ SCH (18:00)
[2021-03-25] MEDS ORDERED: CEFT1VIA14 IJ (18:02)
[2021-03-25] MEDS ORDERED: INSU100V28 SQ (18:02)
[2021-03-25] MEDS ORDERED: ENOX40DI SQ (18:02)
[2021-03-25] MEDS ORDERED: PANT40TA49 PO (18:02)
[2021-03-25] MEDS ORDERED: Insulin Glargine,Hum SQ (18:02)
[2021-03-26 08:07] LABS: *SPE A/G RATIO 0.9 (0.7-1.7); *SPE ALPHA-1-GLOBULIN 0.3 g/dL (0.0-0.4); *SPE ALPHA-2-GLOBULIN 1.1 g/dL (0.4-1.0); *SPE M-SPIKE Not Observed g/dL (Not Observed)
== END 2021-03-25 18:51 | DRG 871 ==
LOC: ER 15:01 → TRANSITION 17:37 → TELE1 23:48 → ICU 03-15 00:05 → TELE1 03-15 20:43
PROVIDERS: ADMIT Nurse Practitioner Family; ATTEND Nurse Practitioner Acute Care
PROC: 4A023N7 Measurement of Cardiac Sampling and Pressure, Left Heart, Percutaneous Approach (ICD-10-PCS; principal; 2021-03-21)
PROC: B211YZZ Fluoroscopy of Multiple Coronary Arteries using Other Contrast (ICD-10-PCS; 2021-03-21)
DX: A41.51 Sepsis due to Escherichia coli [E. coli] (principal); J96.01 Acute respiratory failure with hypoxia; J18.9 Pneumonia, unspecified organism; N17.0 Acute kidney failure with tubular necrosis; I21.4 Non-ST elevation (NSTEMI) myocardial infarction; E87.1 Hypo-osmolality and hyponatremia; N39.0 Urinary tract infection, site not specified; I69.354 Hemiplegia and hemiparesis following cerebral infarction affecting left non-dominant side; Z20.822 Contact with and (suspected) exposure to COVID-19; R65.20 Severe sepsis without septic shock; E11.65 Type 2 diabetes mellitus with hyperglycemia; I11.0 Hypertensive heart disease with heart failure; I25.5 Ischemic cardiomyopathy; R53.1 Weakness; D64.9 Anemia, unspecified; G47.33 Obstructive sleep apnea (adult) (pediatric); I25.10 Atherosclerotic heart disease of native coronary artery without angina pectoris; Z68.36 Body mass index [BMI] 36.0-36.9, adult; E66.01 Morbid (severe) obesity due to excess calories; I50.9 Heart failure, unspecified; Z79.4 Long term (current) use of insulin
CPT/HCPCS: 36415; 36600; 71045-TC; 71250-TC; 75574; 80048-TC; 80053-TC; 80061-TC; 80076-TC; 81001; 82728-TC; 82962-TC; 83540-TC; 83605-TC; 83615-TC; 83735-TC; 83880; 84100-TC; 84155; 84165; 84439-TC; 84484-TC; 85025-TC; 85378-TC; 85610-TC; 85730-TC; 86140-TC; 87040-TC; 87086-TC; 87186-TC; 93307-TC; 97116-TC; 97530-TC; C1887; C9803; G0378; G0500; J0360; J0456; J0692; J0696; J1644; J1650; J1815; J1940; J2250; J2405; J2916; J3010; J3490; J7030; J7050; J7060; Q9966; Q9967; U0003